=== PATIENT | male | born 1960 | race Caucasian/White ===

== ENCOUNTER 2017-08-09 07:17 | Emergency (ER) | payer OTHER ==
[2017-08-09] MEDS: DIPHTH/TET/ACEL PERTUSS (ADULT) 0.5 ML VIAL IM* (08:00)
== END 2017-08-09 09:25 | disposition home or self-care (01) ==
LOC: FTE 07:17
DX: S61.412A Laceration without foreign body of left hand, initial encounter (principal); W26.8XXA Contact with other sharp object(s), not elsewhere classified, initial encounter; Y92.9 Unspecified place or not applicable; Z23 Encounter for immunization
CPT/HCPCS: 12002; 90471; 90715; 99284-25